=== PATIENT | female | born 1965 | race Caucasian/White ===

== ENCOUNTER 2021-11-27 13:02 | Emergency (ER) | payer OTHER ==
[~2021-11-27] VITALS: Ht 175.3 cm; Wt 75.0 kg
[~2021-11-27 13:02] MED LIST: ALLOPURINOL100 MG PO; BUTRANS10 MCG/HR TD; CYMBALTA60 MG PO; GABAPENTIN300 MG PO; INDOCIN50 MG/CAP PO; LISINOPRIL10 MG PO; LORTAB 10-325 M1 TAB PO; OXYBUTYNIN5 M1 PO; PREDNISONE5 MG PO; PRILOSEC40 MG PO; SOMA350 MG PO
[2021-11-27 14:13] VITALS: BP 150/93
[2021-11-27 14:15] VITALS: BP 140/86
[2021-11-27 14:30] VITALS: BP 139/83
[2021-11-27 15:23] VITALS: BP 139/83
== END 2021-11-27 15:23 | disposition left against medical advice (07) ==
LOC: ED 13:02
DX: I73.9 Peripheral vascular disease, unspecified (principal); G62.9 Polyneuropathy, unspecified; F17.200 Nicotine dependence, unspecified, uncomplicated; Z91.19 Patient's noncompliance with other medical treatment and regimen